=== PATIENT | female | born 1985 | race Caucasian/White ===

== ENCOUNTER 2017-12-30 19:01 | Observation (INO) ==
[2017-12-30] MEDS ORDERED: Ondansetron 4 MG/2 ML VIAL IVP ONE (19:37)
[2017-12-30] MEDS ORDERED: 0.9 % Sodium Chloride 1,000 ML IVC ONE (19:37)
[2017-12-30] MEDS ORDERED: Ketorolac 30 MG/ML VIAL IVP ONE (19:37)
[2017-12-30] MEDS ORDERED: Isovue-370 500 ML INFUS..BTL IV ONE (19:41)
--- NOTE | 2017-12-30 19:41 | Emergency Department Note ---
Disposition Clinical Impression: Duodenitis Gastritis Qualifiers: Gastritis type: unspecified gastritis Chronicity: acute Gastritis bleeding: without bleeding Qualified Code(s): K29.00 - Acute gastritis without bleeding Disposition: Home, Self-Care Condition: Good Instructions: Abdominal Pain (ED) Reasons to Return/Additional Instructions: Please take the Cipro and Flagyl as prescribed. Please take the Colace as prescribed as needed for constipation. Please take the lansoprazole daily aspirin prescribed. Please follow-up with Dr. Amaral at the number provided. Please call her office on Monday to schedule an appointment. If not please speak with her primary care provider for referral to gastroenterology. If you do not have a primary care provider please call the physician referral line provided to establish care. Please return at any time if you have worsening of symptoms, unable to keep down fluids or your medications, worsening of pain or any concerns. Prescriptions: Ciprofloxacin HCl [Cipro] 500 mg PO BID #14 tablet Docusate [Colace] 100 mg PO BID #30 capsule Lansoprazole [Prevacid] 15 mg PO DAILY #30 capsule. metroNIDAZOLE [Flagyl] 500 mg PO TID #21 tablet Referrals: NONE,PCP [Primary Care Provider] - Henry Amaral MD [Partnered Physician] - [facility]erral [facility] [Outside] Forms: ED Satisfaction Letter, Work/School Release Time of Disposition: 22:03 Abdominal Pain HPI - General Chief Complaint: ED Abdominal Pain Stated Complaint: Upper Abd Pain / Constipation Time Seen by Provider: 12/30/17 19:29 Source: patient Mode of arrival: EMS Limitations: no limitations Nursing Notes Reviewed: Yes Vital Signs Reviewed: Yes - History of Present Illness HPI Narrative: 32-year-old female presents to the ER via EMS due to abdominal pain, constipation, nausea. Patient states symptoms started 3 days ago. She has pain with epigastric however she does have pain all over intermittently. States she has been nauseous during this time. States her last bowel movement was on Monday. She reports a history of constipation but is not currently on any stool softeners. She reports issues with bowel movements over the last month. She reports a past surgical history of 2 C-sections and a tubal ligation. Denies any fevers. No other complaints. Pt Subjective Complaint: abdominal pain Onset (ago): day(s) Consistency: intermittent Location: epigastric Pain Severity: moderate Pain Scale: 8 Quality: cramping Radiation: none Migration to: no migration Improves with: nothing Worsens with: nothing Associated symptoms: Reports: nausea, constipation. Denies: vomiting, diarrhea , fever, dysuria, hematuria Treatments prior to arrival: none - Related Data Previous Rx's Medication Instructions Recorded Amoxicillin 875 mg PO BID #20 tablet 05/27/15 L. Acidophilus/Pectin, [place] 1 each PO DAILY #11 capsule 05/27/15 [Acidophilus Probiotic Capsule] Promethazine/Dextromethorphan 5 ml PO Q4H PRN #120 ml 05/27/15 [Promethazine-Dm Syrup] Ciprofloxacin HCl [Cipro] 500 mg PO BID #14 tablet 12/30/17 Docusate [Colace] 100 mg PO BID #30 capsule 12/30/17 Lansoprazole [Prevacid] 15 mg PO DAILY #30 capsule. 12/30/17 metroNIDAZOLE [Flagyl] 500 mg PO TID #21 tablet 12/30/17 Allergies Allergy/AdvReac Type Severity Reaction Status Date / Time No Known Allergies Allergy Verified 05/27/15 14:39 All systems ED: reviewed and negative except as stated. Constitutional: Denies: fever Gastrointestinal: Reports: abdominal pain, nausea, constipation. Denies: vomiting, diarrhea Genitourinary: Denies: dysuria, hematuria Abdominal Pain PMH - Past Medical History Medical history: Reports: non-contributory Female Surgical History: Reports: Psychiatric history: Reports: no psych history - Social History Smoking status: Current every day smoker Alcohol use: Reports: none Drug use: Reports: marijuana Physical Exam - General Limitations: no limitations General appearance: alert, in no apparent distress - Head Head exam: atraumatic, normocephalic - Eye Eye exam: Present: normal appearance - ENT ENT exam: normal exam - Neck Neck exam: Present: normal inspection - Chest Chest inspection: Present: normal inspection, symmetric chest wall rise - Respiratory Respiratory exam: Present: normal lung sounds bilaterally - Cardiovascular Cardiovascular exam: Present: regular rate, normal rhythm, normal heart sounds - Abdominal Exam Abdominal exam: Present: soft, tenderness (Moderate epigastric tenderness as well as left lower quadrant and right lower quadrant tenderness.). Absent: distention, guarding, rigidity - Extremities Exam Extremities exam: Present: normal inspection, full ROM - Expanded Upper Extremity Exam Shoulder exam: Present: normal inspection, full ROM Arm exam: Present: normal inspection, full ROM Elbow exam: Present: normal inspection, full ROM Forearm/Wrist exam: Present: normal inspection, full ROM Hand exam: Present: normal inspection, full ROM - Expanded Lower Extremity Exam Hip/Pelvis exam: Present: normal inspection, full ROM Upper leg exam: Present: normal inspection, full ROM Knee exam: Present: normal inspection, full ROM Lower leg exam: Present: normal inspection, full ROM Ankle exam: Present: normal inspection, full ROM Foot/toe exam: Present: normal inspection, full ROM - Skin Skin exam: Present: warm, dry Course Course Narrative: Patient seen and examined. Vital signs reviewed. Plan for CT imaging, labs, urinalysis. IV fluids, Toradol and Zofran. - Reevaluation(s) Reevaluation #1: Discussed results of imaging labs the patient. Plan for antibiotics given her duodenitis as well as initiating a PPI and stool softener. We will also give her follow-up with gastroenterology. Vital Signs Temperature 98.5 F 12/30/17 19:12 Pulse Rate 84 12/30/17 19:12 Respiratory Rate 12 12/30/17 19:12 Blood Pressure 116/82 12/30/17 19:12 O2 Sat by Pulse Oximetry 98 12/30/17 19:12 Temperature 98.5 F 12/30/17 19:12 Pulse Rate 84 12/30/17 19:12 Respiratory Rate 12 12/30/17 19:12 Blood Pressure 116/82 12/30/17 19:12 O2 Sat by Pulse Oximetry 98 12/30/17 19:12 Oxygen Delivery Oxygen Delivery Room Air Abdominal Pain - MDM Narrative Medical decision making narrative: 32-year-old female with epigastric pain [address] imaging reviewed demonstrating gastritis as well as duodenitis. Labs reviewed with a leukocytosis of 12 otherwise no acute derangements. Patient will be discharged with a PPI as well as antibiotic coverage for her duodenitis and stool softener for constipation. We will give information for gastroenterology to follow-up or to have her primary care provider for her. She is instructed to abstain from alcohol or any anti-inflammatory medications. - Lab Data Lab results reviewed: Yes I reviewed the patient's lab results. Result diagrams: 12/30/17 19:45 12/30/17 19:45 Lab Results 12/30/17 12/30/17 12/30/17 Range/Units 19:31 19:31 19:45 WBC 12.4 H (4.3-11.1) K/mcL RBC 4.71 (3.82-4.97) M/mcL Hgb 14.8 (11.5-15.4) g/dL Hct 41.7 (35.3-44.9) % MCV 88.5 (83.0-100.0) fL MCH 31.4 (28.0-33.3) pg MCHC 35.5 (31.6-35.5) g/dL RDW 12.5 (11.5-14.5) % Plt Count 215 (140-400) K/mcL MPV 10.0 (9.4-12.4) fL Immature Gran % 0.3 (0-4) % Seg Neutrophils % 76.8 % Lymphocytes % 17.3 % Monocytes % 4.8 % Eosinophils % 0.6 % Basophils % 0.2 % Neutrophils # 9.6 H (1.6-8.9) K/mcL Lymphocytes # 2.2 (0.6-4.6) K/mcL Monocytes # 0.6 (0.0-1.3) K/mcL Eosinophils # 0.1 (0.0-0.6) K/mcL Basophils # 0.0 (0.0-0.2) K/mcL Sodium (136-145) mEq/L Potassium (3.5-5.1) mEq/L Chloride (98-107) mEq/L Carbon Dioxide (23-29) mEq/L BUN (6-20) mg/dL Creatinine (0.60-1.20) mg/dL Est GFR ( Amer) (> 60) Est GFR (Non-Af Amer) (> 60) BUN/Creatinine Ratio (6-26) Glucose (70-105) mg/dL Calculated Osmolality (280-300) Calcium (8.6-10.3) mg/dL Total Bilirubin (0.3-1.0) mg/dL Direct Bilirubin (0.0-0.2) mg/dL Indirect Bilirubin (0.0-1.2) mg/dL AST (13-39) Units/L ALT (7-52) Units/L Alkaline Phosphatase (34-104) Units/L Serum Total Protein (6.4-8.9) g/dL Albumin (3.5-5.7) g/dL Globulin (2.4-3.5) g/dL Albumin/Globulin Ratio (1.1-2.2) Lipase (11-82) Units/L Urine Color Yellow (Yellow) Urine Clarity Clear (Clear) Urine pH 5.5 (5.0-8.0) pH Units Ur Specific Volin 1.025 (1.010-1.025) Urine Protein Negative (Neg-Trace) mg/dL Urine Glucose (UA) Normal (Normal) mg/dL Urine Ketones Negative (Negative) mg/dL Urine Blood Small H (Negative) Urine Nitrite Negative (Negative) Urine Bilirubin Small H (Negative) Urine Urobilinogen Normal (Normal) mg/dL Ur Leukocyte Esterase Negative (Negative) Urine Microscopic RBC 5-15 H (0-3) per hpf Urine Microscopic WBC 0-3 (0-3) per hpf Ur Squamous Epith Cells Many H (None-Few) per lpf Urine Bacteria None Seen (None-Few) per hpf Hyaline Casts None Seen (None-Few) per lpf Urine Test Negative (Negative) 12/30/17 Range/Units 19:45 WBC (4.3-11.1) K/mcL RBC (3.82-4.97) M/mcL Hgb (11.5-15.4) g/dL Hct (35.3-44.9) % MCV (83.0-100.0) fL MCH (28.0-33.3) pg MCHC (31.6-35.5) g/dL RDW (11.5-14.5) % Plt Count (140-400) K/mcL MPV (9.4-12.4) fL Immature Gran % (0-4) % Seg Neutrophils % % Lymphocytes % % Monocytes % % Eosinophils % % Basophils % % Neutrophils # (1.6-8.9) K/mcL Lymphocytes # (0.6-4.6) K/mcL Monocytes # (0.0-1.3) K/mcL Eosinophils # (0.0-0.6) K/mcL Basophils # (0.0-0.2) K/mcL Sodium 133 L (136-145) mEq/L Potassium 3.4 L (3.5-5.1) mEq/L Chloride 102 (98-107) mEq/L Carbon Dioxide 24 (23-29) mEq/L BUN 13 (6-20) mg/dL Creatinine 0.65 (0.60-1.20) mg/dL Est GFR ( Amer) > 60 (> 60) Est GFR (Non-Af Amer) > 60 (> 60) BUN/Creatinine Ratio 20 (6-26) Glucose 107 H (70-105) mg/dL Calculated Osmolality 277 L (280-300) Calcium 9.3 (8.6-10.3) mg/dL Total Bilirubin 0.6 (0.3-1.0) mg/dL Direct Bilirubin 0.1 (0.0-0.2) mg/dL Indirect Bilirubin 0.5 (0.0-1.2) mg/dL AST 12 L (13-39) Units/L ALT 7 (7-52) Units/L Alkaline Phosphatase 54 (34-104) Units/L Serum Total Protein 7.3 (6.4-8.9) g/dL Albumin 4.5 (3.5-5.7) g/dL Globulin 2.8 (2.4-3.5) g/dL Albumin/Globulin Ratio 1.6 (1.1-2.2) Lipase 24 (11-82) Units/L Urine Color (Yellow) Urine Clarity (Clear) Urine pH (5.0-8.0) pH Units Ur Specific Volin (1.010-1.025) Urine Protein (Neg-Trace) mg/dL Urine Glucose (UA) (Normal) mg/dL Urine Ketones (Negative) mg/dL Urine Blood (Negative) Urine Nitrite (Negative) Urine Bilirubin (Negative) Urine Urobilinogen (Normal) mg/dL Ur Leukocyte Esterase (Negative) Urine Microscopic RBC (0-3) per hpf Urine Microscopic WBC (0-3) per hpf Ur Squamous Epith Cells (None-Few) per lpf Urine Bacteria (None-Few) per hpf Hyaline Casts (None-Few) per lpf Urine Test (Negative) - Radiology Data Radiology results reviewed: Yes I reviewed the patient's radiology results. Abdomen/Pelvis CT 12/30/17 19:41 IMPRESSION: Moderate to severe thickening of the distal stomach with mild to moderate thickening of the descending duodenum. Findings may be seen in setting of peptic ulcer disease. Correlate with symptoms and upper endoscopy. Moderate colonic stool burden within the cecum, ascending colon and transverse colon. No evidence of mechanical bowel obstruction. Mild bilateral hydronephrosis, without obstructing renal calculus or other lesions. This may be secondary to mass effect on the distal ureters. Complex peripherally enhancing lesion within left adnexa measuring 27 x 25 mm. This may represent corpus luteal cyst. Recommend follow-up ultrasounds in 6-[address] evidence of acute appendicitis. Mild periportal edema versus intrahepatic biliary ductal dilatation. D/ / 12/30/2017 21:42:29 Mikael Paiz MD / azael Interpreting Provider: Mikael Paiz MD Attestation Statement - Attestation Attestation: Patient was seen with resident physician. I reviewed the history, physical, assessment and plan, and agree with the findings. I also personally evaluated this patient and had [id number] time with this patient. 32-year-old female presents emergency department via EMS with chief complaint of upper abdominal pain nausea and constipation. Symptoms of been ongoing for 3 days. She is not taking anything which is help with resolution. She is able to eat and drink but she says it hurts when she does so. Pain is mostly in the epigastric area. It is nonradiating. It is worse with inspiration. Review of systems as above remainder negative. Physical exam vital signs are stable. ENT is unremarkable. Heart and lungs are normal. Abdomen is soft diffusely tender with some guarding with palpation of the upper abdomen. Extremities are unremarkable. Neurologically intact. Skin no rashes. Psych patient has a flat affect. ED course. We will do CT scan the abdomen and pelvis to rule out abnormalities. She has a mild elevation of her white blood cell count but lipase is normal and otherwise labs are largely unremarkable. I will treat her nausea with Zofran, and we will administer Protonix as well as IV hydration. Disposition will depend on the findings of the CT scan. Scan was consistent with infection the stomach and duodenum. This is consistent with gastritis. Patient was started on antibiotics. We will also start her on proton pump inhibitors. These findings also received peptic ulcer disease. She is feeling better while in the emergency department. She was still for discharge. We will have her follow-up to primary care doctor. Agree with resident physician assessment and plan.
[2017-12-30 19:45] LABS: Bilirubin,Urine Small (Negative); Blood,Urine Small (Negative); Clarity,Urine Clear (Clear); Color,Urine Yellow (Yellow); Glucose,Urine (UA) Normal (Normal); Ketones,Urine Negative (Negative); Leukocyte Esterase,Urine Negative (Negative); Nitrite,Urine Negative (Negative); PH,Urine 5.5 pH Units (5.0-8.0); Protein,Urine Negative (Neg-Trace); Specific Gravity,Urine 1.025 (1.010-1.025); Urobilinogen,Urine Normal (Normal)
[2017-12-30 19:49] LABS: Bacteria,Urine None Seen per hpf (None-Few); Hyaline Casts,Urine None Seen per lpf (None-Few); Squamous Epithelial Cell,Urine Many per lpf (None-Few); WBC,Urine 0-3 per hpf (0-3)
[2017-12-30 20:06] LABS: Basophils % 0.2 %; Eosinophils # 0.1 K/mcL (0.0-0.6); Eosinophils % 0.6 %; Hematocrit 41.7 % (35.3-44.9); Hemoglobin 14.8 g/dL (11.5-15.4); Immature Granulocytes % 0.3 % (0-4); Lymphocytes # 2.2 K/mcL (0.6-4.6); Lymphocytes % 17.3 %; Mean Corpuscular HGB Conc 35.5 g/dL (31.6-35.5); Mean Corpuscular Hemoglobin 31.4 pg (28.0-33.3); Mean Corpuscular Volume 88.5 fL (83.0-100.0); Monocytes # 0.6 K/mcL (0.0-1.3); Monocytes % 4.8 %; Neutrophils # 9.6 K/mcL (1.6-8.9); Platelet Count 215 K/mcL (140-400); Red Blood Count 4.71 M/mcL (3.82-4.97); Red Cell Distribution Width 12.5 % (11.5-14.5); Segmented Neutrophils % 76.8 %
[2017-12-30] MEDS ORDERED: Pantoprazole 40 MG VIAL IVP ONE ×2 (20:06→22:57)
[2017-12-30 20:18] LABS: Alanine Aminotransferase 7 Units/L (7-52); Albumin 4.5 g/dL (3.5-5.7); Albumin/Globulin Ratio 1.6 (1.1-2.2); Alkaline Phosphatase 54 Units/L (34-104); Aspartate Amino Transferase 12 Units/L (13-39); BUN/Creatinine Ratio 20 (6-26); Bilirubin,Direct 0.1 mg/dL (0.0-0.2); Bilirubin,Indirect 0.5 mg/dL (0.0-1.2); Bilirubin,Total 0.6 mg/dL (0.3-1.0); Blood Urea Nitrogen 13 mg/dL (6-20); Calcium 9.3 mg/dL (8.6-10.3); Carbon Dioxide 24 mEq/L (23-29); Chloride 102 mEq/L (98-107); Globulin 2.8 g/dL (2.4-3.5); Glucose 107 mg/dL (70-105); Lipase 24 Units/L (11-82); Osmolality,Calculated 277 (280-300); Potassium 3.4 mEq/L (3.5-5.1); Sodium 133 mEq/L (136-145); Total Protein 7.3 g/dL (6.4-8.9); eGFR For Non-African Americans > 60 (> 60)
[2017-12-30] MEDS ORDERED: GI Cocktail 40 ML EACH PO ONE (21:58)
[2017-12-30] MEDS ORDERED: Famotidine 20 MG/2 ML VIAL IVP ONE (22:57)
[2017-12-30] MEDS ORDERED: *HR* LORazepam 0.5 MG TABLET PO ONE (22:59)
--- NOTE | 2017-12-31 01:01 | Internal Med History&Physical ---
Date of Encounter: 12/31/17 Time of Encounter: 00:57 Internal Medicine - H&P: HPI Chief complaint: Abd pain Admitted From: Home History of present illness: Ms. Vergara is a 32 year old female with a past medical history of GERD and tobacco dependence who presented complaining of intermittent non-radiating epigastric abdominal pain, nausea, and chills since having her last bowel movement 4 days ago. Patient reports a history of chronic constipation and reports usually only having a bowel movement every couple of months. She is able to eat and drink but reports abdominal bloating with each meal. She has a prior history of x2 and tubal ligation but denies a history of small bowel obstruction. Patient denies associated fever, chest pain, shortness of breath, vomiting, anorexia, bulimia, gastroparesis, PPI use, dysuria, hematuria , leg edema, sick contacts, or previous EGD/ colonoscopy. Past Med Surg Social Fam HX - Past Medical History Medical history: GERD Psychiatric history: no psych history - Past Surgical History Surgical History: (2003), other (BTL) - Social History Smoking Status: Current every day smoker Smokeless Tobacco Status: No Alcohol use: none Drug use: marijuana (daily) Current living situation: Home, With Family Activity Level: Independent ambulation Recent Out of Country Travel Within the Last 8 Weeks: No Exposure or Possible Exposure to Illness During Travel: No - Family History Brother Family Member Ethnicity: Non- Living Status: Age at : 30 Hx Family Cardiac Disorders: Yes (CHF) Hx Family Respiratory Disorders: No Hx Family Cancer: No Hx Family GI Disorders: No Hx Family Genitourinary Disorders: No Hx Family Endocrine Disorder: No Hx Family Musculoskeletal Disorders: No Hx Family Neuromuscular Disorders: No Hx Family Neurologic Disorders: No Hx Family HEENT Disorders: No Hx Family Autoimmune Disorders: No Hx Family Reproductive Disorders: No Hx Family Psychosocial Disorders: No Hx Family Medical Disorders: No Mother Hx Family GI Disorders: Yes (Diverticulosis) Maternal Grandmother Hx Family Endocrine Disorder: Yes (DM) Internal Medicine - H&P: Meds Amoxicillin 875 mg PO BID #20 tablet 05/27/15 [Rx] L. Acidophilus/Pectin, [place] [Acidophilus Probiotic Capsule] 1 each PO DAILY # 11 capsule 05/27/15 [Rx] Promethazine/Dextromethorphan [Promethazine-Dm Syrup] 5 ml PO Q4H PRN #120 ml [Rx] Ciprofloxacin HCl [Cipro] 500 mg PO BID #14 tablet 12/30/17 [Rx] Docusate [Colace] 100 mg PO BID #30 capsule 12/30/17 [Rx] Lansoprazole [Prevacid] 15 mg PO DAILY #30 capsule. 12/30/17 [Rx] metroNIDAZOLE [Flagyl] 500 mg PO TID #21 tablet 12/30/17 [Rx] 3 Allergy/AdvReac Type Severity Reaction Status Date / Time No Known Allergies Allergy Verified 05/27/15 14:39 All Systems PM: A 10-system review of systems was performed and is negative for pertinent findings except as documented above in the HPI. - Constitutional Constitutional: chills, fatigue, lethargy, weakness, no anorexia, no fever(s), no weight gain, no weight loss - EENT Eyes: no blurry vision, no diplopia Nose, mouth and throat: no sinus pain, no sore throat - Cardiovascular Cardiovascular ROS IM: no chest pain, no dyspnea, no palpitations - Respiratory Respiratory: no cough, no wheezing - Gastrointestinal Gastrointestinal: abdominal pain, bloating, change in bowel habits, constipation , cramping, dyspepsia, early satiety, heartburn, nausea, no diarrhea, no dysphagia, no excessive flatus, no fecal incontinence, no hematemesis, no hematochezia, no loose stools, no melena, no odynophagia, no tenesmus, no vomiting - Genitourinary Genitourinary: flank pain (left), no dysuria, no hematuria, no urinary frequency , no urinary urgency Menstruation: other (s/p ubal ligation) - Musculoskeletal Musculoskeletal ROS IM: no back pain, no numbness, no tingling - Integumentary Integumentary IM: no erythema, no rash, no skin ulcer - Neurological Neurological ROS: no dizziness, no numbness, no tingling - Psychiatric Psychiatric: no anxiety, no depression - Endocrine Endocrine IM: fatigue, no polydipsia, no polyphagia, no polyuria - Hematologic/Lymphatic Hematologic/Lymphatic: no easy bleeding, no easy bruising - Constitutional Vitals: Temp Pulse Resp BP Pulse Ox 98.5 F 61 17 99/67 98 12/30/17 19:12 12/30/17 23:44 12/30/17 23:44 12/30/17 23:44 12/30/17 23:44 General appearance: Present: cachectic, cooperative, mild distress, A&O X 3, pleasant, answers questions appropriately - Head Head exam: Present: atraumatic, normocephalic - Eye Eye exam: Present: EOMI, conjuntiva pink, sclera anicteric - ENT ENT exam: Present: mucous membranes dry, normal oropharynx - Neck Neck exam general surgery: Present: supple, trachea midline. Absent: lymphadenopathy - Respiratory Respiratory exam: Present: CTAB. Absent: accessory muscle use, rales, rhonchi, wheezes - Cardiovascular Cardiovascular exam: Present: RRR, +S1, +S2. Absent: diastolic murmur, gallop, rubs, systolic murmur - GI/Abdominal GI/Abdominal exam: Present: guarding (epigastric), normal bowel sounds, soft, tenderness (epigastric, LLQ), no peritoneal signs. Absent: diminished bowel sounds, distended, hepatomegaly, pulsatile mass - Extremities Exam Extremities exam: Present: normal capillary refill, normal inspection, warm, radial pulses palpable and symmetrical. Absent: calf tenderness, cyanotic, pedal edema - Back Exam Back exam: Present: CVA tenderness (L), normal inspection, paraspinal tenderness. Absent: CVA tenderness (R), tenderness, vertebral tenderness - Neurological Exam Neurological exam: Present: alert, CN II-XII intact, oriented X3, no focal deficits. Absent: pronater drift, facial droop, speech deficit - Psychiatric Psychiatric exam: Present: flat affect, normal mood - Skin Skin exam: Present: dry, intact, normal color, warm Internal Med - H&P Results - Labs CBC & Chem 7: 12/30/17 19:45 12/30/17 19:45 - Pulse Oximetry Interpretation Digit-Finger O2 Sat by Pulse Oximetry: 98 (On room air) - Impressions ITS Impressions Abdomen/Pelvis CT 12/30/17 19:41 IMPRESSION: Moderate to severe thickening of the distal stomach with mild to moderate thickening of the descending duodenum. Findings may be seen in setting of peptic ulcer disease. Correlate with symptoms and upper endoscopy. Moderate colonic stool burden within the cecum, ascending colon and transverse colon. No evidence of mechanical bowel obstruction. Mild bilateral hydronephrosis, without obstructing renal calculus or other lesions. This may be secondary to mass effect on the distal ureters. Complex peripherally enhancing lesion within left adnexa measuring 27 x 25 mm. This may represent corpus luteal cyst. Recommend follow-up ultrasounds in 6-[address] evidence of acute appendicitis. Mild periportal edema versus intrahepatic biliary ductal dilatation. D/ / 12/30/2017 21:42:29 Mikael Paiz MD / azael Interpreting Provider: Mikael Paiz MD - Assessment and plan (1) Gastritis Current Visit: Yes Status: Acute Assessment and plan: CT abdomen pelvis reveals moderate to severe thickening of the distal stomach with mild to moderate thickening of the descending duodenum. Findings may be seen in setting of peptic ulcer disease. Mild periportal edema versus intrahepatic biliary ductal dilatation. RUQ ultrasound pending NPO diet Continue Protonix IV Continue Zofran prn nausea Continue IV fluids Continue monitoring Consider GI consult for possible EGD Qualifiers: Gastritis type: unspecified gastritis Chronicity: acute Gastritis bleeding: without bleeding Qualified Code(s): K29.00 - Acute gastritis without bleeding (2) GERD (gastroesophageal reflux disease) Current Visit: Yes Status: Chronic Assessment and plan: Continue Protonix IV Continue monitoring Qualifiers: Esophagitis presence: esophagitis presence not specified Qualified Code(s) : K21.9 - Gastro-esophageal reflux disease without esophagitis (3) Constipation Current Visit: Yes Status: Acute Assessment and plan: Last BM [address] abdomen pelvis revealed moderate colonic stool burden within the cecum, ascending colon and transverse colon. No evidence of mechanical bowel obstruction. Continue Senna plus Consider GI consult for possible colonoscopy Qualifiers: Constipation type: slow transit constipation Qualified Code(s): K59.01 - Slow transit constipation (4) Hydronephrosis, bilateral Current Visit: Yes Status: Acute Assessment and plan: CT abdomen pelvis revealed mild bilateral hydronephrosis, without obstructing renal calculus or other lesions. This may be secondary to mass effect on the distal ureters. Retroperitoneal ultrasound pending Continue IV fluids Monitor input and output (5) Left adnexal tenderness Current Visit: Yes Status: Acute Assessment and plan: CT abdomen pelvis reveals complex peripherally enhancing lesion within left adnexa measuring 27 x 25 mm. This may represent corpus luteal cyst. Transvaginal pelvic ultrasound pending Recommend follow-up ultrasounds in 6-10 weeks. (6) Tobacco dependence Current Visit: No Status: Chronic Assessment and plan: Tobacco cessation discussed Nicotine patch ordered (7) DVT prophylaxis Current Visit: Yes Status: Acute Assessment and plan: EPCDs - Time Spent With Patient Total time spent is greater than 50% in coordination of care (as documented) at patient's floor/unit and/or counseling patient:
[2017-12-31] MEDS ORDERED: Acetaminophen 325 MG TABLET PO PRN (01:19)
[2017-12-31] MEDS ORDERED: Naloxone 0.4 MG/ML INJ IVP PRN (01:19)
[2017-12-31] MEDS ORDERED: Nicotine 7 MG PATCH.TD24 TD SCH (01:19)
--- NOTE | 2017-12-31 01:30 | Emergency Department Note ---
Disposition Clinical Impression: Duodenitis Gastritis Qualifiers: Gastritis type: unspecified gastritis Chronicity: acute Gastritis bleeding: without bleeding Qualified Code(s): K29.00 - Acute gastritis without bleeding Disposition: Admitted As Inpatient Condition: Good General Adult HPI - General Chief complaint: ED Abdominal Pain Stated complaint: Upper Abd Pain / Constipation Time Seen by Provider: 12/30/17 19:29 Source: patient Mode of arrival: EMS Limitations: no limitations - History of Present Illness Pain Scale: 5 - Related Data Previous Rx's Medication Instructions Recorded Amoxicillin 875 mg PO BID #20 tablet 05/27/15 L. Acidophilus/Pectin, [place] 1 each PO DAILY #11 capsule 05/27/15 [Acidophilus Probiotic Capsule] Promethazine/Dextromethorphan 5 ml PO Q4H PRN #120 ml 05/27/15 [Promethazine-Dm Syrup] Ciprofloxacin HCl [Cipro] 500 mg PO BID #14 tablet 12/30/17 Docusate [Colace] 100 mg PO BID #30 capsule 12/30/17 Lansoprazole [Prevacid] 15 mg PO DAILY #30 capsule. 12/30/17 metroNIDAZOLE [Flagyl] 500 mg PO TID #21 tablet 12/30/17 Allergies Allergy/AdvReac Type Severity Reaction Status Date / Time No Known Allergies Allergy Verified 05/27/15 14:39 Constitutional: Denies: fever Gastrointestinal: Reports: abdominal pain, nausea, constipation. Denies: vomiting, diarrhea Genitourinary: Denies: dysuria, hematuria Past Medical History - Past Medical History Medical history: Reports: non-contributory Psychiatric history: Reports: no psych history - Social History Smoking Status: Current every day smoker Smokeless Tobacco Status: No Alcohol use: Reports: none Drug use: Reports: marijuana Physical Exam - General Limitations: no limitations General appearance: alert, in no apparent distress Course Vital Signs Temperature 98.5 F 12/30/17 19:12 Pulse Rate 84 12/30/17 19:12 Respiratory Rate 12 12/30/17 19:12 Blood Pressure 116/82 12/30/17 19:12 O2 Sat by Pulse Oximetry 98 12/30/17 19:12 Temperature 98.5 F 12/30/17 19:12 Pulse Rate 61 12/30/17 23:44 Respiratory Rate 17 12/30/17 23:44 Blood Pressure 99/67 12/30/17 23:44 O2 Sat by Pulse Oximetry 98 12/30/17 23:44 Oxygen Delivery Oxygen Delivery Room Air Medical Decision Making - Lab Data Result diagrams: 12/30/17 19:45 12/30/17 19:45 Lab Results 12/30/17 12/30/17 12/30/17 Range/Units 19:31 19:31 19:45 WBC 12.4 H (4.3-11.1) K/mcL RBC 4.71 (3.82-4.97) M/mcL Hgb 14.8 (11.5-15.4) g/dL Hct 41.7 (35.3-44.9) % MCV 88.5 (83.0-100.0) fL MCH 31.4 (28.0-33.3) pg MCHC 35.5 (31.6-35.5) g/dL RDW 12.5 (11.5-14.5) % Plt Count 215 (140-400) K/mcL MPV 10.0 (9.4-12.4) fL Immature Gran % 0.3 (0-4) % Seg Neutrophils % 76.8 % Lymphocytes % 17.3 % Monocytes % 4.8 % Eosinophils % 0.6 % Basophils % 0.2 % Neutrophils # 9.6 H (1.6-8.9) K/mcL Lymphocytes # 2.2 (0.6-4.6) K/mcL Monocytes # 0.6 (0.0-1.3) K/mcL Eosinophils # 0.1 (0.0-0.6) K/mcL Basophils # 0.0 (0.0-0.2) K/mcL Sodium (136-145) mEq/L Potassium (3.5-5.1) mEq/L Chloride (98-107) mEq/L Carbon Dioxide (23-29) mEq/L BUN (6-20) mg/dL Creatinine (0.60-1.20) mg/dL Est GFR ( Amer) (> 60) Est GFR (Non-Af Amer) (> 60) BUN/Creatinine Ratio (6-26) Glucose (70-105) mg/dL Calculated Osmolality (280-300) Calcium (8.6-10.3) mg/dL Total Bilirubin (0.3-1.0) mg/dL Direct Bilirubin (0.0-0.2) mg/dL Indirect Bilirubin (0.0-1.2) mg/dL AST (13-39) Units/L ALT (7-52) Units/L Alkaline Phosphatase (34-104) Units/L Serum Total Protein (6.4-8.9) g/dL Albumin (3.5-5.7) g/dL Globulin (2.4-3.5) g/dL Albumin/Globulin Ratio (1.1-2.2) Lipase (11-82) Units/L Urine Color Yellow (Yellow) Urine Clarity Clear (Clear) Urine pH 5.5 (5.0-8.0) pH Units Ur Specific [place] 1.025 (1.010-1.025) Urine Protein Negative (Neg-Trace) mg/dL Urine Glucose (UA) Normal (Normal) mg/dL Urine Ketones Negative (Negative) mg/dL Urine Blood Small H (Negative) Urine Nitrite Negative (Negative) Urine Bilirubin Small H (Negative) Urine Urobilinogen Normal (Normal) mg/dL Ur Leukocyte Esterase Negative (Negative) Urine Microscopic RBC 5-15 H (0-3) per hpf Urine Microscopic WBC 0-3 (0-3) per hpf Ur Squamous Epith Cells Many H (None-Few) per lpf Urine Bacteria None Seen (None-Few) per hpf Hyaline Casts None Seen (None-Few) per lpf Urine Test Negative (Negative) 12/30/17 Range/Units 19:45 WBC (4.3-11.1) K/mcL RBC (3.82-4.97) M/mcL Hgb (11.5-15.4) g/dL Hct (35.3-44.9) % MCV (83.0-100.0) fL MCH (28.0-33.3) pg MCHC (31.6-35.5) g/dL RDW (11.5-14.5) % Plt Count (140-400) K/mcL MPV (9.4-12.4) fL Immature Gran % (0-4) % Seg Neutrophils % % Lymphocytes % % Monocytes % % Eosinophils % % Basophils % % Neutrophils # (1.6-8.9) K/mcL Lymphocytes # (0.6-4.6) K/mcL Monocytes # (0.0-1.3) K/mcL Eosinophils # (0.0-0.6) K/mcL Basophils # (0.0-0.2) K/mcL Sodium 133 L (136-145) mEq/L Potassium 3.4 L (3.5-5.1) mEq/L Chloride 102 (98-107) mEq/L Carbon Dioxide 24 (23-29) mEq/L BUN 13 (6-20) mg/dL Creatinine 0.65 (0.60-1.20) mg/dL Est GFR ( Amer) > 60 (> 60) Est GFR (Non-Af Amer) > 60 (> 60) BUN/Creatinine Ratio 20 (6-26) Glucose 107 H (70-105) mg/dL Calculated Osmolality 277 L (280-300) Calcium 9.3 (8.6-10.3) mg/dL Total Bilirubin 0.6 (0.3-1.0) mg/dL Direct Bilirubin 0.1 (0.0-0.2) mg/dL Indirect Bilirubin 0.5 (0.0-1.2) mg/dL AST 12 L (13-39) Units/L ALT 7 (7-52) Units/L Alkaline Phosphatase 54 (34-104) Units/L Serum Total Protein 7.3 (6.4-8.9) g/dL Albumin 4.5 (3.5-5.7) g/dL Globulin 2.8 (2.4-3.5) g/dL Albumin/Globulin Ratio 1.6 (1.1-2.2) Lipase 24 (11-82) Units/L Urine Color (Yellow) Urine Clarity (Clear) Urine pH (5.0-8.0) pH Units Ur Specific [place] (1.010-1.025) Urine Protein (Neg-Trace) mg/dL Urine Glucose (UA) (Normal) mg/dL Urine Ketones (Negative) mg/dL Urine Blood (Negative) Urine Nitrite (Negative) Urine Bilirubin (Negative) Urine Urobilinogen (Normal) mg/dL Ur Leukocyte Esterase (Negative) Urine Microscopic RBC (0-3) per hpf Urine Microscopic WBC (0-3) per hpf Ur Squamous Epith Cells (None-Few) per lpf Urine Bacteria (None-Few) per hpf Hyaline Casts (None-Few) per lpf Urine Test (Negative) Attestation Statement - Attestation Attestation: I examined this patient and my medical decision-making was reviewed with the Resident Physician. I agree with the documented findings, disposition and treatment plan as described except to the extent set forth below. I received this patient in signout. The patient did have ongoing abdominal pain. Concern for peptic ulcer disease as well as hydronephrosis. Due to ongoing nausea and vomiting she will be medicated with Carafate, Protonix, Pepcid, admitted for further management and possible endoscopy evaluation.
[2017-12-31] MEDS: *HR* HYDROcodone/Acet 5/325 mg TABLET PO PRN ×2 (02:03→17:41)
[2017-12-31] MEDS: Nicotine 7 MG PATCH.TD24 TD SCH ×2 (02:04→09:01)
[2017-12-31] MEDS: Ringers Solution, Lactated 1,000 ML IVC SCH ×2 (02:04→11:34)
[2017-12-31] MEDS ORDERED: Ondansetron 4 MG/2 ML VIAL IVP PRN (02:25)
[2017-12-31] MEDS ORDERED: Ipratropium/Albuterol Neb 3 ML IH PRN (02:48)
[2017-12-31] MEDS: Pantoprazole 40 MG VIAL IVP SCH ×2 (05:58→17:39)
[2017-12-31] MEDS ORDERED: GI Cocktail 40 ML EACH PO ONE (06:16)
[2017-12-31 06:30] LABS: Basophils % 0.3 %; Eosinophils # 0.1 K/mcL (0.0-0.6); Eosinophils % 1.1 %; Hematocrit 35.7 % (35.3-44.9); Immature Granulocytes % 0.2 % (0-4); Lymphocytes # 1.7 K/mcL (0.6-4.6); Lymphocytes % 26.4 %; Mean Corpuscular HGB Conc 33.6 g/dL (31.6-35.5); Mean Corpuscular Hemoglobin 30.2 pg (28.0-33.3); Mean Corpuscular Volume 89.7 fL (83.0-100.0); Mean Platelet Volume 10.2 fL (9.4-12.4); Monocytes # 0.4 K/mcL (0.0-1.3); Monocytes % 5.7 %; Neutrophils # 4.2 K/mcL (1.6-8.9); Platelet Count 151 K/mcL (140-400); Red Blood Count 3.98 M/mcL (3.82-4.97); Red Cell Distribution Width 12.7 % (11.5-14.5); Segmented Neutrophils % 66.3 %
[2017-12-31] MEDS: Sucralfate 1 GM TABLET PO SCH ×4 (06:44→21:35)
[2017-12-31 06:50] LABS: Alanine Aminotransferase 7 Units/L (7-52); Albumin 3.6 g/dL (3.5-5.7); Albumin/Globulin Ratio 1.8 (1.1-2.2); Alkaline Phosphatase 40 Units/L (34-104); Aspartate Amino Transferase 12 Units/L (13-39); BUN/Creatinine Ratio 16 (6-26); Bilirubin,Total 0.6 mg/dL (0.3-1.0); Blood Urea Nitrogen 9 mg/dL (6-20); Calcium 8.3 mg/dL (8.6-10.3); Carbon Dioxide 24 mEq/L (23-29); Chloride 107 mEq/L (98-107); Glucose 92 mg/dL (70-105); Magnesium 1.8 mg/dL (1.6-2.6); Osmolality,Calculated 278 (280-300); Phosphorous 3.2 mg/dL (2.7-4.5); Potassium 3.6 mEq/L (3.5-5.1); Sodium 135 mEq/L (136-145); Total Protein 5.6 g/dL (6.4-8.9); eGFR For Non-African Americans > 60 (> 60)
[2017-12-31] MEDS: Sennosides/Docusate Sodium TABLET PO SCH ×2 (09:01→21:36)
[2017-12-31] MEDS: MetroNIDAZOLE 500 MG/100 ML 500 MG/100 ML BAG IVPB SCH ×3 (09:02→23:12)
[2017-12-31] MEDS: Bisacodyl 10 MG RECTAL SUPPOSITORY RC SCH (13:38)
--- NOTE | 2017-12-31 14:17 | Event Note ---
<Ernesto Johnson - Last Filed: 12/31/17 15:13> Date of Encounter: 12/31/17 Time of Encounter: 12:05 Ms Vergara is a 32F who was admitted for epigastric pain, chills, and nausea. PMH of GERD and tobacco dependance. She stated the pain began after her last bowel movement 4 days ago. Pt states she normally only has 1 bowel movement every couple months. This is endorsed by pt's . Prior to this encounter the pt had received [address] of the abdomen revealed thickening of the stomach and duodenum, moderate stool burden, mild hydronephrosis with no visualized stone or obstruction, and a left adnexal mass suggestive of a corpus luteal cyst. Pt states she is now feeling "the best I have in the past 5 days". States her abdominal pain is no longer present unless someone palpates the area. Denies any headache, chest pain, SOB, cough, nausea, vomiting, diarrhea, numbness, or tingling. No difficulty urinating. PE: Head: normocephalic and atraumatic Eyes: PERRL, EOMI, sclera anicteric, conjunctiva pink Neck: supple, trachea midline Lungs: CTA bilaterally. no wheezes, rales, or rhonchi. non-labored breathing on room air Heart: RRR +S1 +s2. No murmurs, clicks, or rubs GI: abdomen soft, TTP of epigastic area and tender to deep palpation of LLQ, mildly distended. normoactive bowel sounds Extremities: warm, radial pulses palpable and symmetrical. no pedal edema or cyanosis Neuro: A&Ox3. no focal deficits. no speech difficulty or abnormality Skin: warm, dry, intact A/P: Peptic Ulcer Disease -thickening of stomach and duodenum on CT -Continue PPI BID -Continue carafate Constipation -Pt reports hx of constipation -Last BM 4 days ago -Moderate stool burden noted on CT with bilateraly hydronephrosis likely caused by mass effect of stool -Senna BID -Miralax -Lactulose 10mg TID -Dulcolax suppository Left Adnexal Mass -noted on CT as likely corpus luteal cyst -f/u ultrasound in 6-10 weeks <Colten Urena - Last Filed: 12/31/17 17:34> Date of Encounter: 12/31/17 I examined this patient and my medical decision-making was reviewed with the Resident Physician Dr. Johnson. I agree with the documented findings, disposition and treatment plan as described except to the extent set forth below. Ms. Vergara is a 32 y/o F with no significant PMH other than GERD, chronic tobacco dependence, constipation presented to ER with abdominal pain. CT of the abdomen revealed thickening of the stomach and duodenum, moderate stool burden, mild hydronephrosis with no visualized stone or obstruction, and a left adnexal mass suggestive of a corpus luteal cyst. Gen: A, A, Ox 3 Chest: Diminished BS b//l Heart: S1S2+ RRR Abd: Soft. mild discomfort, no guarding / rigidity a/p 1. Acute Abdominal pain due to PUD + COnstipation PPI BID + Carafatae started on bowel regimen - Miralax, Senna plus + Lactulose
[2017-12-31] MEDS: Lactulose Oral Soln 20 GM/30 ML UDC PO SCH ×2 (15:35→21:36)
[2017-12-31] MEDS ORDERED: Sucralfate 1 GM TABLET PO ONE (22:58)
[2018-01-01] MEDS: Pantoprazole 40 MG VIAL IVP SCH (05:11)
[2018-01-01 07:36] LABS: Basophils % 0.2 %; Eosinophils # 0.1 K/mcL (0.0-0.6); Eosinophils % 1.4 %; Hematocrit 37.6 % (35.3-44.9); Hemoglobin 12.9 g/dL (11.5-15.4); Immature Granulocytes % 0.2 % (0-4); Lymphocytes # 1.3 K/mcL (0.6-4.6); Lymphocytes % 23.6 %; Mean Corpuscular HGB Conc 34.3 g/dL (31.6-35.5); Mean Corpuscular Volume 90.4 fL (83.0-100.0); Mean Platelet Volume 10.2 fL (9.4-12.4); Monocytes # 0.4 K/mcL (0.0-1.3); Monocytes % 6.6 %; Neutrophils # 3.8 K/mcL (1.6-8.9); Platelet Count 129 K/mcL (140-400); Red Blood Count 4.16 M/mcL (3.82-4.97); Red Cell Distribution Width 12.5 % (11.5-14.5)
[2018-01-01 07:57] LABS: BUN/Creatinine Ratio 8 (6-26); Blood Urea Nitrogen 5 mg/dL (6-20); Calcium 8.7 mg/dL (8.6-10.3); Carbon Dioxide 26 mEq/L (23-29); Chloride 107 mEq/L (98-107); Glucose 100 mg/dL (70-105); Osmolality,Calculated 279 (280-300); Potassium 3.7 mEq/L (3.5-5.1); Sodium 136 mEq/L (136-145); eGFR For Non-African Americans > 60 (> 60)
[2018-01-01] MEDS: Lactulose Oral Soln 20 GM/30 ML UDC PO SCH (08:28)
[2018-01-01] MEDS: Sennosides/Docusate Sodium TABLET PO SCH (08:28)
[2018-01-01] MEDS: Sucralfate 1 GM TABLET PO SCH ×2 (08:28→11:32)
[2018-01-01] MEDS: Nicotine 7 MG PATCH.TD24 TD SCH (08:29)
[2018-01-01] MEDS: Bisacodyl 10 MG RECTAL SUPPOSITORY RC SCH (08:31)
[2018-01-01] MEDS: MetroNIDAZOLE 500 MG/100 ML 500 MG/100 ML BAG IVPB SCH (09:04)
[2018-01-01 10:14] VITALS: BP 116/63
--- NOTE | 2018-01-01 12:58 | Discharge Summary ---
- NOTES TO OUTPATIENT PROVIDER Notes to Outpatient Provider: Patient has 27 x 25 mm left adnexal lesion that may be corpus luteal cyst; needs repeat ultrasound in 6-10 weeks. Patient has moderate to severe thickening of the distal stomach that could be peptic ulcer disease; will be discharged on PPI likely need outpatient EGD. Patient had mild nonobstructive hydronephrosis; will need follow-up as an outpatient. Date of Encounter: 01/01/18 Time of Encounter: 12:55 - Discharge Diagnosis (1) Gastritis Priority: Primary Status: Acute Qualifiers: Gastritis type: unspecified gastritis Chronicity: acute Gastritis bleeding: without bleeding Qualified Code(s): K29.00 - Acute gastritis without bleeding (2) Constipation Priority: Secondary Status: Acute Qualifiers: Constipation type: slow transit constipation Qualified Code(s): K59.01 - Slow transit constipation (3) Hydronephrosis, bilateral Priority: Secondary Status: Acute (4) GERD (gastroesophageal reflux disease) Priority: Secondary Status: Chronic Qualifiers: Esophagitis presence: esophagitis presence not specified Qualified Code(s) : K21.9 - Gastro-esophageal reflux disease without esophagitis (5) Tobacco dependence Priority: Secondary Status: Chronic (6) DVT prophylaxis Priority: Secondary Status: Acute (7) Left adnexal tenderness Priority: Secondary Status: Acute Hospital course: Ms. Vergara is a 32 year old female who presented with abdominal pain to the emergency department. Patient had CT findings consistent with peptic ulcer disease and was started on PPI. Patient also with chronic constipation and started on bowel regimen which was successful. On CT patient was found to have a 20s over 25 mm lesion in her left adnexa which could be a corpus luteal cyst this seems to be followed up with ultrasound in 6-10 weeks. Patient was also found to have mild bilateral nonobstructive hydronephrosis that should be followed up on an outpatient. He should also may need GI referral for possible EGD. Patient will be discharged on PPI, Carafate, Colace twice a day, MiraLAX. Patient understands that she needs to follow with primary care physician for the above issues. Discharge discussed with: patient, family, nurse - Time Spent with Patient Total time spent providing and/or coordinating discharge services: Greater than 30 minutes - Discharge Medications Prescriptions: Docusate [Colace] 100 mg PO BID 30 Days #60 capsule Omeprazole [PriLOSEC] 40 mg PO DAILY 30 Days #30 cap Polyethylene Glycol 3350 [MiraLAX] 17 gm PO DAILY 30 Days #30 powd.pack Sucralfate [Carafate] 1 gm PO QIDAC 30 Days #30 tablet Home Medications: Docusate [Colace] 100 mg PO BID 30 Days #60 capsule 01/01/18 [Rx] Omeprazole [PriLOSEC] 40 mg PO DAILY 30 Days #30 cap 01/01/18 [Rx] Polyethylene Glycol 3350 [MiraLAX] 17 gm PO DAILY 30 Days #30 powd.pack [Rx] Sucralfate [Carafate] 1 gm PO QIDAC 30 Days #30 tablet 01/01/18 [Rx] Allergies/Adverse Reactions: 3 Allergy/AdvReac Type Severity Reaction Status Date / Time No Known Allergies Allergy Verified 05/27/15 14:39 Date of admission: 12/31/17 00:36 Primary care physician: PCP NONE Consults: 12/31/17 01:31 Consult to Nutrition [CONS] Routine Comment: Consulting Provider: NUTRITION Reason for Dietary Consult: MST Score - Constitutional Vitals: Temp Pulse Resp BP Pulse Ox 97.7 F 72 14 116/63 100 01/01/18 10:09 01/01/18 10:09 01/01/18 10:09 01/01/18 10:09 01/01/18 10:09 General appearance: Present: cachectic, cooperative, mild distress, A&O X 3, pleasant, answers questions appropriately Exam: Constitutional: No acute distress, Alert Psych: AAO x 3 HEENT: NCAT, EOMI Neck: supple, no JVD Cardio: regular rate and rhythm, +s1s2, no murmurs/rubs/gallops, no JVD Resp: clear to ascultation bilaterally, no wheezes/rales/ronchi Abd: soft, non tender/non distended, positive bowel sounds, no gaurding/reboud/ ridgitity Extremities: no clubbing/cyanosis/edema appreciated - Patient Status Disposition: Home, Self-Care Condition: Good Functional capacity at discharge: independent ambulation Overall status at discharge: patient is back to baseline - Discharge Instructions Follow Up With: NONE,PCP [Primary Care Provider] - Additional Instructions: Follow-up with primary care physician within one week. He need to have transvaginal ultrasound to evaluate left adnexal lesion. He need to follow up with primary care physician regarding mild bilateral hydronephrosis. Your primary care physician will decide if you need to see a GI doctor to have an EGD for your distal stomach thickening could be associated with peptic ulcer disease. - Diet and Activity Activity: increase activity as tolerated Diet: advance to your usual diet - VTE Documentation of Mechanical Device: Intermittent pneumatic compression device
== END 2018-01-01 13:58 | disposition home or self-care (01) ==
LOC: EMEROO 19:01 → 3ANU 19:01
PROVIDERS: ADMIT Family Medicine; ATTEND Family Medicine